=== PATIENT | male | born 1955 | race Caucasian/White ===

== ENCOUNTER 2023-06-11 15:27 | Inpatient (IN) | payer OTHER, MEDICAID ==
[~2023-06-11] VITALS: Ht 185.4 cm; Wt 146.6 kg
[2023-06-11 15:34] VITALS: BP_SYST 96; PULSE 89; RESP 18; TEMP 98.1; O2SAT 98
[2023-06-11] MEDS ORDERED: NS 1000 ML IV.SOLN IV ONE (16:30)
[2023-06-11 17:09] LABS: HEMATOCRIT 33.8 % (36-54); HEMOGLOBIN 11.2 g/dL (14.0-18.0); MEAN CORPUSCULAR HEMOGLOBIN 27 pg (27-31); MEAN CORPUSCULAR HGB CONC 33 % (32-36); MEAN CORPUSCULAR VOLUME 82 fL (79.0-98.0); PLATELET COUNT (AUTO) 113 K/uL (130-430); RED BLOOD CELL COUNT(AUTO) 4.12 MIL/uL (4.2-6.2); RED CELL DISTRIBUTION WIDTH 14.4 % (9.0-15.0); WHITE BLOOD COUNT (AUTO) 27.4 K/uL (4.8-10.8)
[2023-06-11 17:14] LABS: COLOR,URINE AMBER (YELLOW)
[2023-06-11 17:15] LABS: PROTHROMBIN TIME 10.8 SECS (9.5-12.5)
[2023-06-11 17:15] LABS: CLARITY/URINE HAZY (CLEAR); PROTEIN URINE 3+ (NEGATIVE)
[2023-06-11 17:16] LABS: BILIRUBIN,URINE 2+ (NEGATIVE); KETONES,URINE TRACE (NEGATIVE)
[2023-06-11 17:17] LABS: BLOOD, URINE TRACE (NEGATIVE); GLUCOSE,URINE 2+ (NEGATIVE); LEUKOCYTE ESTERASE ,URINE NEGATIVE (NEGATIVE); NITRITE, URINE NEGATIVE (NEGATIVE)
[2023-06-11 17:23] LABS: ALANINE AMINOTRANSFERASE 98 U/L (12-78); ALBUMIN 1.2 g/dL (3.4-4.8); ANION GAP 11 (5-15); ASPARTATE AMINOTRANSFERASE 189 U/L (10-37); CARBON DIOXIDE 23 mmol/L (23-29); CREATININE 2.78 mg/dL (0.55-1.30); GFR AFRICAN AMERICAN 30 mL/min (>90); GLUCOSE 399 mg/dL (74-106); POTASSIUM 4.3 mmol/L (3.5-5.1); TOTAL BILIRUBIN 1.7 mg/dL (0.0-1.0); TOTAL PROTEIN, SERUM 5.6 g/dL (6.4-8.3); UREA NITROGEN, BLOOD 79 mg/dL (8-21)
[2023-06-11 17:25] LABS: BACTERIA,URINE RARE /HPF (None Seen); CALCIUM OXALATE CRYSTALS,UR 0-10 /HPF (None Seen); FINE GRANULAR CASTS,URINE 0-10 /LPF (None Seen); HYALINE CASTS, URINE 0-10 /LPF (None Seen); MUCUS,URINE 1+ /LPF (None Seen); URINE AMORPHOUS URATE 1+ /HPF (None Seen); WBC,URINE 0-3 /HPF (0-3)
[2023-06-11 17:25] LABS: BAND % (MANUAL) 42 % (0-6)
[2023-06-11 17:26] LABS: BASOPHILS % (MANUAL) 0 % (0-2); EOSINOPHILS % (MANUAL) 1 % (0-7); LYMPHOCYTES % (MANUAL) 4 % (20-46); MONOCYTES % (MANUAL) 1 % (0-11); OVALOCYTES FEW; PLATELET ESTIMATE DECREASED (ADEQUATE); TEAR DROP CELLS FEW
[2023-06-11 17:28] LABS: GFR NON AFRICAN-AMERICAN 24 mL/min (>90)
[2023-06-11 17:29] LABS: CHLORIDE 79 mmol/L (98-107); SODIUM SERUM 113 mmol/L (136-145)
[2023-06-11] MEDS ORDERED: ACETAMINOPHEN 500 MG TABLET ONE (17:56)
[2023-06-11] MEDS ORDERED: ACETAMINOPHEN 500 MG TABLET PO ONE (18:00)
[2023-06-11] MEDS ORDERED: PIPERACILLIN/TAZO 3.375 GM in D5W 50 ML IV ONE (18:30)
[2023-06-11] MEDS ORDERED: VANCOMYCIN HCL 1.25 GM/NS 250 ML IV ONE (18:30)
[2023-06-11] MEDS ORDERED: PIPERACILLIN/TAZOBACTAM 3.375 GM/VIAL (ZOSYN) IV ONE (18:39)
[2023-06-11] MEDS ORDERED: LIP20 PO (19:05)
[2023-06-11] MEDS ORDERED: LISI10TA PO (19:05)
[2023-06-11] MEDS ORDERED: ASPI-524 PO (19:05)
[2023-06-11] MEDS ORDERED: BENZ1TAB82 PO (19:05)
[2023-06-11] MEDS ORDERED: AMLO5TAB4 PO (19:05)
[2023-06-11] MEDS ORDERED: CARV12.548 PO (19:05)
[2023-06-11] MEDS ORDERED: PRO40 PO (19:05)
[2023-06-11] MEDS ORDERED: TAMS-11 PO (19:05)
[2023-06-11] MEDS ORDERED: ONDANSETRON HCL 4 MG/2 ML VIAL IVP PRN (20:15)
[2023-06-11 22:05] VITALS: BP_SYST 127; PULSE 76; RESP 18; TEMP 97
[2023-06-11 22:10] VITALS: BP_SYST 127; PULSE 76; RESP 18; TEMP 97
[2023-06-12] VITALS (7 sets, daily range): BP systolic 92–127; PULSE 72–78; RESP 17–28; TEMP 96.6–97.7; O2SAT 94–98
[2023-06-12] MEDS: KCL 20 mEq in NS 1000 mL 1,000 ML IV SCH ×3 (00:29→17:42)
[2023-06-12 05:28] LABS: BASOPHILS # (AUTO) 0.1 K/uL (0.0-0.2); BASOPHILS % (AUTO) 0.2 % (0.0-2.0); EOSINOPHILS # (AUTO) 0.7 K/uL (0.0-0.4); EOSINOPHILS % (AUTO) 2.4 % (0.0-4.0); HEMATOCRIT 32.9 % (36-54); LYMPHOCYTES # (AUTO) 0.6 K/uL (1.0-5.5); LYMPHOCYTES % (AUTO) 2.1 % (20.5-51.5); MEAN CORPUSCULAR HEMOGLOBIN 27 pg (27-31); MEAN CORPUSCULAR HGB CONC 33 % (32-36); MEAN CORPUSCULAR VOLUME 82 fL (79.0-98.0); MONOCYTES # (AUTO) 0.6 K/uL (0.0-1.0); MONOCYTES % (AUTO) 2.2 % (1.7-9.3); NEUTROPHILS # (AUTO) 27.1 K/uL (1.8-7.7); NEUTROPHILS % (AUTO) 93.1 % (40.0-70.0); PLATELET COUNT (AUTO) 90 K/uL (130-430); RED BLOOD CELL COUNT(AUTO) 4.02 MIL/uL (4.2-6.2); RED CELL DISTRIBUTION WIDTH 14.7 % (9.0-15.0); WHITE BLOOD COUNT (AUTO) 29.1 K/uL (4.8-10.8)
[2023-06-12 05:38] LABS: ALBUMIN 1.1 g/dL (3.4-4.8); AMYLASE 14 U/L (0-100); CREATININE 2.64 mg/dL (0.55-1.30); LIPASE 35 U/L (73-393); POTASSIUM 4.2 mmol/L (3.5-5.1); TOTAL BILIRUBIN 1.6 mg/dL (0.0-1.0); TOTAL PROTEIN, SERUM 5.2 g/dL (6.4-8.3)
[2023-06-12 06:09] LABS: CALCIUM 6.6 mg/dL (8.4-11.0)
[2023-06-12] MEDS: INSULIN REGULAR, HUMAN 100 UNITS/ML, 3 ML VIAL (humuLIN R) SUBCUT PRN ×4 (06:49→20:38)
[2023-06-12] MEDS: AZITHROMYCIN 500 MG in NS 250 ML IV SCH (12:29)
[2023-06-12] MEDS: MEROPENEM 500 MG in NS 50 ML IV SCH ×2 (13:44→22:17)
[2023-06-12] MEDS: INSULIN GLARGINE 100 UNITS/ML, 10 ML VIAL SUBCUT SCH (17:46)
[2023-06-12] MEDS: SODIUM CHLORIDE 3% *HI-ALERT* 500 ML IV ONE ×2 (20:35→22:18)
[2023-06-12 21:30] LABS: CREATININE 2.88 mg/dL (0.55-1.30); POTASSIUM 4.5 mmol/L (3.5-5.1)
[2023-06-12 21:41] LABS: CALCIUM 6.8 mg/dL (8.4-11.0)
[2023-06-13 00:58] VITALS: BP_SYST 122; PULSE 74; RESP 19; TEMP 98.4; O2SAT 91
[2023-06-13] MEDS: MEROPENEM 500 MG in NS 50 ML IV SCH ×3 (05:09→21:45)
[2023-06-13 05:19] LABS: BASOPHILS % (AUTO) 0.1 % (0.0-2.0); EOSINOPHILS # (AUTO) 0.2 K/uL (0.0-0.4); EOSINOPHILS % (AUTO) 0.5 % (0.0-4.0); HEMOGLOBIN 10.9 g/dL (14.0-18.0); LYMPHOCYTES # (AUTO) 1.4 K/uL (1.0-5.5); LYMPHOCYTES % (AUTO) 4.1 % (20.5-51.5); MEAN CORPUSCULAR HEMOGLOBIN 26 pg (27-31); MEAN CORPUSCULAR HGB CONC 32 % (32-36); MEAN CORPUSCULAR VOLUME 82 fL (79.0-98.0); MONOCYTES # (AUTO) 0.7 K/uL (0.0-1.0); MONOCYTES % (AUTO) 2.2 % (1.7-9.3); NEUTROPHILS # (AUTO) 31.2 K/uL (1.8-7.7); NEUTROPHILS % (AUTO) 93.1 % (40.0-70.0); PLATELET COUNT (AUTO) 84 K/uL (130-430); RED BLOOD CELL COUNT(AUTO) 4.13 MIL/uL (4.2-6.2); RED CELL DISTRIBUTION WIDTH 14.4 % (9.0-15.0)
[2023-06-13 05:49] LABS: WHITE BLOOD COUNT (AUTO) 33.5 K/uL (4.8-10.8)
[2023-06-13 05:50] LABS: CREATININE 2.41 mg/dL (0.55-1.30); PHOSPHORUS 3.5 mg/dL (2.7-4.5); POTASSIUM 4.9 mmol/L (3.5-5.1); THYROID STIMULATING HORMONE 1.61 uIu/mL (0.34-4.82); TOTAL BILIRUBIN 0.9 mg/dL (0.0-1.0); TOTAL PROTEIN, SERUM 5.5 g/dL (6.4-8.3)
[2023-06-13 06:11] LABS: CALCIUM 6.6 mg/dL (8.4-11.0)
[2023-06-13] MEDS: INSULIN REGULAR, HUMAN 100 UNITS/ML, 3 ML VIAL (humuLIN R) SUBCUT PRN ×4 (06:23→21:48)
[2023-06-13 07:58] VITALS: BP_SYST 126; PULSE 67; RESP 32; TEMP 97.1; O2SAT 97
[2023-06-13] MEDS: ACETAMINOPHEN 325 MG TABLET PO PRN (08:51)
[2023-06-13] MEDS: AZITHROMYCIN 500 MG in NS 250 ML IV SCH (11:27)
[2023-06-13 12:00] VITALS: BP_SYST 88; PULSE 64; RESP 16; TEMP 96.9; O2SAT 100
[2023-06-13 12:07] LABS: HEPATITIS A AB, IgM Negative (Negative); HEPATITIS B CORE AB, IgM Negative (Negative); HEPATITIS B SURFACE AG Negative (Negative); HEPATITIS C VIRUS AB Non Reactive (Non Reactive)
[2023-06-13 13:57] LABS: URINE SODIUM, RANDOM 3 mmol/L (40-220)
[2023-06-13] MEDS: DAPTOmycin 500 MG in NS 50 ML IV SCH (15:00)
[2023-06-13 16:03] LABS: CREATININE 2.02 mg/dL (0.55-1.30); POTASSIUM 4.7 mmol/L (3.5-5.1)
[2023-06-13 16:07] LABS: CALCIUM 6.6 mg/dL (8.4-11.0)
[2023-06-13] MEDS ORDERED: SODIUM CHLORIDE 3% *HI-ALERT* 500 ML IV ONE (17:00)
[2023-06-13] MEDS: INSULIN GLARGINE 100 UNITS/ML, 10 ML VIAL SUBCUT SCH (17:02)
[2023-06-13 18:11] LABS: POTASSIUM 5.1 mmol/L (3.5-5.1)
[2023-06-13 18:13] LABS: CREATININE 2.39 mg/dL (0.55-1.30)
[2023-06-13 18:15] LABS: CALCIUM 6.5 mg/dL (8.4-11.0)
[2023-06-13 18:36] VITALS: BP_SYST 112; PULSE 68; RESP 19; TEMP 96.9; O2SAT 97
[2023-06-13 18:37] VITALS: BP_SYST 115; PULSE 70; RESP 21; TEMP 97.3; O2SAT 99
[2023-06-13 19:51] VITALS: BP_SYST 133; PULSE 68; RESP 18; TEMP 97.4; O2SAT 66; O2SAT 99
[2023-06-13] MEDS: MORPHINE 4 MG INJ. 4 MG/ML VIAL IVP PRN (23:22)
[2023-06-14 01:11] VITALS: BP_SYST 119; PULSE 74; RESP 18; TEMP 97.5; O2SAT 97
[2023-06-14 01:14] LABS: CREATININE 1.89 mg/dL (0.55-1.30); POTASSIUM 4.8 mmol/L (3.5-5.1); TOTAL BILIRUBIN 1.1 mg/dL (0.0-1.0); TOTAL PROTEIN, SERUM 5.9 g/dL (6.4-8.3)
[2023-06-14 01:21] LABS: CALCIUM 6.6 mg/dL (8.4-11.0)
[2023-06-14 05:36] LABS: BASOPHILS % (AUTO) 0.1 % (0.0-2.0); EOSINOPHILS # (AUTO) 0.2 K/uL (0.0-0.4); EOSINOPHILS % (AUTO) 0.7 % (0.0-4.0); LYMPHOCYTES # (AUTO) 1.8 K/uL (1.0-5.5); LYMPHOCYTES % (AUTO) 5.1 % (20.5-51.5); MEAN CORPUSCULAR HEMOGLOBIN 27 pg (27-31); MEAN CORPUSCULAR HGB CONC 32 % (32-36); MEAN CORPUSCULAR VOLUME 82 fL (79.0-98.0); MONOCYTES % (AUTO) 2.9 % (1.7-9.3); NEUTROPHILS # (AUTO) 31.2 K/uL (1.8-7.7); NEUTROPHILS % (AUTO) 91.2 % (40.0-70.0); PLATELET COUNT (AUTO) 82 K/uL (130-430); RED BLOOD CELL COUNT(AUTO) 4.15 MIL/uL (4.2-6.2); RED CELL DISTRIBUTION WIDTH 14.9 % (9.0-15.0)
[2023-06-14 05:37] LABS: CREATININE 1.78 mg/dL (0.55-1.30); POTASSIUM 4.6 mmol/L (3.5-5.1)
[2023-06-14] MEDS: MEROPENEM 500 MG in NS 50 ML IV SCH ×3 (05:43→22:03)
[2023-06-14] MEDS: MORPHINE 4 MG INJ. 4 MG/ML VIAL IVP PRN (05:43)
[2023-06-14 05:48] LABS: CALCIUM 6.6 mg/dL (8.4-11.0)
[2023-06-14] MEDS: INSULIN REGULAR, HUMAN 100 UNITS/ML, 3 ML VIAL (humuLIN R) SUBCUT PRN ×4 (05:53→22:01)
[2023-06-14 06:08] LABS: WHITE BLOOD COUNT (AUTO) 34.3 K/uL (4.8-10.8)
[2023-06-14 08:15] VITALS: BP_SYST 136; PULSE 75; RESP 16; TEMP 96.8; O2SAT 97
[2023-06-14] MEDS: ACETAMINOPHEN 325 MG TABLET PO PRN (08:18)
[2023-06-14 08:25] VITALS: O2SAT 97
[2023-06-14] MEDS ORDERED: SODIUM CHLORIDE 3% *HI-ALERT* 500 ML IV ONE (09:00)
[2023-06-14 09:57] LABS: CREATININE 1.75 mg/dL (0.55-1.30); POTASSIUM 4.8 mmol/L (3.5-5.1)
[2023-06-14 09:59] LABS: CALCIUM 6.5 mg/dL (8.4-11.0)
[2023-06-14] MEDS ORDERED: FUROSEMIDE 40 MG/4 ML VIAL IVP ONE (12:00)
[2023-06-14 12:06] LABS: CREATININE, URINE 230.5 mg/dL (Not Estab.)
[2023-06-14] MEDS: AZITHROMYCIN 500 MG in NS 250 ML IV SCH (13:07)
[2023-06-14] MEDS: DAPTOmycin 500 MG in NS 50 ML IV SCH (16:36)
[2023-06-14] MEDS: INSULIN GLARGINE 100 UNITS/ML, 10 ML VIAL SUBCUT SCH (18:15)
[2023-06-14 19:00] VITALS: BP_SYST 134; PULSE 72; RESP 16; TEMP 97.1; O2SAT 96; O2SAT 98
[2023-06-15 00:03] VITALS: BP_SYST 120; PULSE 74; RESP 16; TEMP 96.5; O2SAT 95
[2023-06-15] MEDS: MORPHINE 4 MG INJ. 4 MG/ML VIAL IVP PRN ×2 (00:52→11:36)
[2023-06-15] MEDS: ACETAMINOPHEN 325 MG TABLET PO PRN (03:26)
[2023-06-15 06:09] LABS: ALBUMIN 0.8 g/dL (3.4-4.8); CREATININE 1.38 mg/dL (0.55-1.30); PHOSPHORUS 4.9 mg/dL (2.7-4.5); POTASSIUM 5.2 mmol/L (3.5-5.1); TOTAL BILIRUBIN 0.8 mg/dL (0.0-1.0); TOTAL PROTEIN, SERUM 6.1 g/dL (6.4-8.3)
[2023-06-15] MEDS: MEROPENEM 500 MG in NS 50 ML IV SCH ×3 (06:22→21:21)
[2023-06-15 06:34] LABS: CALCIUM 6.8 mg/dL (8.4-11.0)
[2023-06-15] MEDS: INSULIN REGULAR, HUMAN 100 UNITS/ML, 3 ML VIAL (humuLIN R) SUBCUT PRN ×4 (06:46→22:11)
[2023-06-15 07:06] LABS: MYCOPLASMA PNEUMONIAE IgM <770 U/mL (0-769)
[2023-06-15 08:00] VITALS: BP_SYST 124; PULSE 76; RESP 18; TEMP 97.3; O2SAT 96
[2023-06-15 08:32] LABS: CKMB RELATIVE INDEX 0.1 (0.0-2.9); CREATINE KINASE MB 0.4 ng/mL (0-3.6)
[2023-06-15] MEDS ORDERED: FUROSEMIDE 40 MG/4 ML VIAL IVP ONE (12:15)
[2023-06-15 12:42] VITALS: BP_SYST 122; PULSE 70; RESP 17; TEMP 97; O2SAT 97
[2023-06-15] MEDS ORDERED: SODIUM CHLORIDE 3% *HI-ALERT* 250 ML IV ONE (13:30)
[2023-06-15 15:17] VITALS: O2SAT 96
[2023-06-15] MEDS: DAPTOmycin 500 MG in NS 50 ML IV SCH (15:48)
[2023-06-15 16:49] VITALS: BP_SYST 123; PULSE 77; RESP 18; TEMP 97.2; O2SAT 97
[2023-06-15] MEDS: INSULIN GLARGINE 100 UNITS/ML, 10 ML VIAL SUBCUT SCH (17:24)
[2023-06-15 20:00] VITALS: BP_SYST 137; PULSE 85; RESP 18; TEMP 98.6; O2SAT 96
[2023-06-15] MEDS: ATORVASTATIN 20 MG TABLET PO SCH (22:09)
[2023-06-15] MEDS: TAMSULOSIN HCL 0.4 MG CAP PO SCH (22:09)
[2023-06-16 00:31] VITALS: BP_SYST 142; PULSE 73; RESP 14; TEMP 97.6; O2SAT 97
[2023-06-16] MEDS: MEROPENEM 500 MG in NS 50 ML IV SCH ×3 (06:24→23:18)
[2023-06-16 06:30] LABS: ALBUMIN 0.9 g/dL (3.4-4.8); CREATININE 1.23 mg/dL (0.55-1.30); TOTAL BILIRUBIN 0.8 mg/dL (0.0-1.0); TOTAL PROTEIN, SERUM 6.7 g/dL (6.4-8.3)
[2023-06-16 06:47] LABS: CALCIUM 6.8 mg/dL (8.4-11.0); POTASSIUM 5.9 mmol/L (3.5-5.1)
[2023-06-16] MEDS: INSULIN REGULAR, HUMAN 100 UNITS/ML, 3 ML VIAL (humuLIN R) SUBCUT PRN ×4 (06:58→20:31)
[2023-06-16 08:00] VITALS: BP_SYST 146; PULSE 74; RESP 18; TEMP 99.2; O2SAT 98
[2023-06-16] MEDS ORDERED: SODIUM POLYSTYRENE SULFONATE 15 GM/60 ML UDBTL PO ONE (08:30)
[2023-06-16] MEDS ORDERED: SODIUM BICARBONATE 8.4% JECT 50 MEQ/50 ML SYRINGE IVP ONE (08:30)
[2023-06-16] MEDS: ASPIRIN 81 MG TABLET(ECOTRIN) PO SCH (09:12)
[2023-06-16 12:42] VITALS: BP_SYST 144; PULSE 77; RESP 16; TEMP 98.6; O2SAT 98
[2023-06-16] MEDS ORDERED: CLINDAMYCIN 300 MG/50 ML D5W 50 ML IV ONE (14:15)
[2023-06-16 15:10] VITALS: O2SAT 98
[2023-06-16] MEDS ORDERED: FUROSEMIDE 40 MG/4 ML VIAL IVP ONE (15:15)
[2023-06-16 16:00] VITALS: BP_SYST 145; PULSE 75; RESP 17; TEMP 98.9; O2SAT 97
[2023-06-16] MEDS: DAPTOmycin 500 MG in NS 50 ML IV SCH (16:10)
[2023-06-16] MEDS ORDERED: SODIUM CHLORIDE 3% *HI-ALERT* 250 ML IV ONE (16:15)
[2023-06-16] MEDS: CLINDAMYCIN 300 MG/50 ML D5W 50 ML IV SCH ×2 (16:46→22:17)
[2023-06-16] MEDS: INSULIN GLARGINE 100 UNITS/ML, 10 ML VIAL SUBCUT SCH (16:55)
[2023-06-16 19:00] VITALS: O2SAT 97
[2023-06-16] MEDS: TAMSULOSIN HCL 0.4 MG CAP PO SCH (20:25)
[2023-06-16] MEDS: ATORVASTATIN 20 MG TABLET PO SCH (20:25)
[2023-06-17 00:11] VITALS: BP_SYST 145; PULSE 78; RESP 16; TEMP 97.2; O2SAT 95
[2023-06-17] MEDS: CLINDAMYCIN 300 MG/50 ML D5W 50 ML IV SCH ×3 (04:23→16:31)
[2023-06-17] MEDS: MEROPENEM 500 MG in NS 50 ML IV SCH ×3 (06:29→22:47)
[2023-06-17] MEDS: INSULIN REGULAR, HUMAN 100 UNITS/ML, 3 ML VIAL (humuLIN R) SUBCUT PRN ×4 (06:37→20:24)
[2023-06-17 07:28] LABS: HEMATOCRIT 31.3 % (36-54); HEMOGLOBIN 10.4 g/dL (14.0-18.0); MEAN CORPUSCULAR HEMOGLOBIN 27 pg (27-31); MEAN CORPUSCULAR HGB CONC 33 % (32-36); MEAN CORPUSCULAR VOLUME 82 fL (79.0-98.0); PLATELET COUNT (AUTO) 197 K/uL (130-430); RED BLOOD CELL COUNT(AUTO) 3.81 MIL/uL (4.2-6.2); RED CELL DISTRIBUTION WIDTH 14.8 % (9.0-15.0)
[2023-06-17 07:30] VITALS: BP_SYST 105; PULSE 71; RESP 18; TEMP 97.7; O2SAT 97
[2023-06-17 07:36] LABS: ALBUMIN 0.9 g/dL (3.4-4.8); CALCIUM 7.1 mg/dL (8.4-11.0); CREATININE 1.18 mg/dL (0.55-1.30); PHOSPHORUS 5.5 mg/dL (2.7-4.5); TOTAL BILIRUBIN 0.6 mg/dL (0.0-1.0); TOTAL PROTEIN, SERUM 6.7 g/dL (6.4-8.3)
[2023-06-17 07:43] LABS: POTASSIUM 5.8 mmol/L (3.5-5.1)
[2023-06-17 07:51] LABS: WHITE BLOOD COUNT (AUTO) 30.6 K/uL (4.8-10.8)
[2023-06-17 09:36] LABS: BAND % (MANUAL) 15 % (0-6); LYMPHOCYTES % (MANUAL) 5 % (20-46); MONOCYTES % (MANUAL) 5 % (0-11)
[2023-06-17 09:37] LABS: BASOPHILS % (MANUAL) 0 % (0-2); EOSINOPHILS % (MANUAL) 2 % (0-7); METAMYELOCYTES % 7 % (0-0); MYELOCYTES % 1 % (0-0); PLATELET ESTIMATE ADEQUATE (ADEQUATE); SMUDGE CELLS RARE
[2023-06-17] MEDS: ASPIRIN 81 MG TABLET(ECOTRIN) PO SCH (10:13)
[2023-06-17 11:30] VITALS: BP_SYST 102; PULSE 75; RESP 17; TEMP 97.9; O2SAT 97
[2023-06-17] MEDS: DAPTOmycin 500 MG in NS 50 ML IV SCH (14:37)
[2023-06-17] MEDS ORDERED: SODIUM ZIRCONIUM CYCLOSILICATE 10 GM POWD.PACK PO ONE (15:00)
[2023-06-17] MEDS: ALBUMIN HUMAN 25% 50 ML IV SCH ×2 (16:30→20:31)
[2023-06-17 17:30] VITALS: BP_SYST 110; PULSE 77; RESP 17; TEMP 98.1; O2SAT 97
[2023-06-17] MEDS: INSULIN GLARGINE 100 UNITS/ML, 10 ML VIAL SUBCUT SCH (17:41)
[2023-06-17 20:00] VITALS: BP_SYST 142; PULSE 76; RESP 18; TEMP 97.9; O2SAT 97
[2023-06-17] MEDS: TAMSULOSIN HCL 0.4 MG CAP PO SCH (20:18)
[2023-06-17] MEDS: CLINDAMYCIN HCL 150 MG CAPSULE PO SCH (20:18)
[2023-06-17] MEDS: ATORVASTATIN 20 MG TABLET PO SCH (20:18)
[2023-06-17 23:00] VITALS: O2SAT 97
[2023-06-18 00:12] VITALS: BP_SYST 145; PULSE 75; RESP 20; TEMP 98.6; O2SAT 95
[2023-06-18] MEDS: traZODone HCL 50 MG TABLET (DESYREL) PO PRN ×2 (02:12→20:33)
[2023-06-18] MEDS: ALBUMIN HUMAN 25% 50 ML IV SCH (02:34)
[2023-06-18] MEDS: MEROPENEM 500 MG in NS 50 ML IV SCH (06:38)
[2023-06-18 07:52] LABS: BASOPHILS # (AUTO) 0.2 K/uL (0.0-0.2); BASOPHILS % (AUTO) 0.7 % (0.0-2.0); EOSINOPHILS # (AUTO) 0.2 K/uL (0.0-0.4); EOSINOPHILS % (AUTO) 0.7 % (0.0-4.0); HEMATOCRIT 29.3 % (36-54); HEMOGLOBIN 9.8 g/dL (14.0-18.0); LYMPHOCYTES # (AUTO) 1.7 K/uL (1.0-5.5); LYMPHOCYTES % (AUTO) 7.3 % (20.5-51.5); MEAN CORPUSCULAR HEMOGLOBIN 28 pg (27-31); MEAN CORPUSCULAR HGB CONC 34 % (32-36); MEAN CORPUSCULAR VOLUME 82 fL (79.0-98.0); MONOCYTES # (AUTO) 0.8 K/uL (0.0-1.0); MONOCYTES % (AUTO) 3.4 % (1.7-9.3); NEUTROPHILS # (AUTO) 21.1 K/uL (1.8-7.7); PLATELET COUNT (AUTO) 254 K/uL (130-430); RED BLOOD CELL COUNT(AUTO) 3.55 MIL/uL (4.2-6.2); RED CELL DISTRIBUTION WIDTH 14.7 % (9.0-15.0)
[2023-06-18 08:07] VITALS: BP_SYST 122; PULSE 77; RESP 18; TEMP 99.1; O2SAT 97
[2023-06-18 08:10] LABS: NEUTROPHILS % (AUTO) 87.9 % (40.0-70.0)
[2023-06-18 08:12] LABS: CALCIUM 7.4 mg/dL (8.4-11.0); CREATININE 1.02 mg/dL (0.55-1.30); POTASSIUM 5.4 mmol/L (3.5-5.1)
[2023-06-18] MEDS: ASPIRIN 81 MG TABLET(ECOTRIN) PO SCH (08:31)
[2023-06-18] MEDS: CLINDAMYCIN HCL 150 MG CAPSULE PO SCH ×4 (08:32→20:34)
[2023-06-18 11:30] VITALS: BP_SYST 102; PULSE 74; RESP 19; TEMP 98; O2SAT 98
[2023-06-18] MEDS: INSULIN REGULAR, HUMAN 100 UNITS/ML, 3 ML VIAL (humuLIN R) SUBCUT PRN ×3 (12:21→20:36)
[2023-06-18] MEDS ORDERED: SODIUM ZIRCONIUM CYCLOSILICATE 10 GM POWD.PACK PO ONE (14:00)
[2023-06-18] MEDS: DAPTOmycin 500 MG in NS 50 ML IV SCH (14:49)
[2023-06-18 17:30] VITALS: BP_SYST 120; PULSE 81; RESP 18; TEMP 98.1; O2SAT 97
[2023-06-18] MEDS: INSULIN GLARGINE 100 UNITS/ML, 10 ML VIAL SUBCUT SCH (17:51)
[2023-06-18 20:00] VITALS: BP_SYST 127; PULSE 82; RESP 18; TEMP 97.7; O2SAT 97
[2023-06-18] MEDS: ATORVASTATIN 20 MG TABLET PO SCH (20:34)
[2023-06-18] MEDS: TAMSULOSIN HCL 0.4 MG CAP PO SCH (20:34)
[2023-06-18 22:00] VITALS: O2SAT 96
[2023-06-19 01:17] VITALS: BP_SYST 133; PULSE 83; RESP 19; TEMP 98.6; O2SAT 96
[2023-06-19 05:37] LABS: BASOPHILS # (AUTO) 0.1 K/uL (0.0-0.2); BASOPHILS % (AUTO) 0.4 % (0.0-2.0); EOSINOPHILS # (AUTO) 0.1 K/uL (0.0-0.4); EOSINOPHILS % (AUTO) 0.5 % (0.0-4.0); HEMATOCRIT 28.8 % (36-54); HEMOGLOBIN 9.7 g/dL (14.0-18.0); LYMPHOCYTES # (AUTO) 1.7 K/uL (1.0-5.5); LYMPHOCYTES % (AUTO) 7.1 % (20.5-51.5); MEAN CORPUSCULAR HEMOGLOBIN 27 pg (27-31); MEAN CORPUSCULAR HGB CONC 34 % (32-36); MEAN CORPUSCULAR VOLUME 81 fL (79.0-98.0); MONOCYTES # (AUTO) 0.9 K/uL (0.0-1.0); MONOCYTES % (AUTO) 3.6 % (1.7-9.3); NEUTROPHILS # (AUTO) 21.5 K/uL (1.8-7.7); NEUTROPHILS % (AUTO) 88.4 % (40.0-70.0); PLATELET COUNT (AUTO) 346 K/uL (130-430); RED BLOOD CELL COUNT(AUTO) 3.55 MIL/uL (4.2-6.2); RED CELL DISTRIBUTION WIDTH 14.9 % (9.0-15.0); WHITE BLOOD COUNT (AUTO) 24.3 K/uL (4.8-10.8)
[2023-06-19 06:08] LABS: CALCIUM 7.8 mg/dL (8.4-11.0); CREATININE 0.85 mg/dL (0.55-1.30)
[2023-06-19 06:15] LABS: POTASSIUM 5.8 mmol/L (3.5-5.1)
[2023-06-19] MEDS: INSULIN REGULAR, HUMAN 100 UNITS/ML, 3 ML VIAL (humuLIN R) SUBCUT PRN ×3 (06:38→17:24)
[2023-06-19 08:00] VITALS: BP_SYST 128; PULSE 78; RESP 20; TEMP 98.2; O2SAT 95
[2023-06-19] MEDS: ASPIRIN 81 MG TABLET(ECOTRIN) PO SCH (08:29)
[2023-06-19] MEDS: CLINDAMYCIN HCL 150 MG CAPSULE PO SCH ×4 (08:29→22:13)
[2023-06-19 11:33] VITALS: BP_SYST 140; PULSE 90; RESP 20; TEMP 98.8; O2SAT 93
[2023-06-19] MEDS: DAPTOmycin 500 MG in NS 50 ML IV SCH (15:16)
[2023-06-19 15:45] VITALS: BP_SYST 135; PULSE 85; RESP 18; TEMP 98.3; O2SAT 93
[2023-06-19] MEDS: INSULIN GLARGINE 100 UNITS/ML, 10 ML VIAL SUBCUT SCH (17:23)
[2023-06-19 20:00] VITALS: BP_SYST 131; PULSE 85; RESP 18; TEMP 98.4; O2SAT 96
[2023-06-19] MEDS ORDERED: SODIUM ZIRCONIUM CYCLOSILICATE 10 GM POWD.PACK PO ONE (20:15)
[2023-06-19 21:30] VITALS: O2SAT 96
[2023-06-19] MEDS: ATORVASTATIN 20 MG TABLET PO SCH (22:13)
[2023-06-19] MEDS: TAMSULOSIN HCL 0.4 MG CAP PO SCH (22:13)
[2023-06-19] MEDS: traZODone HCL 50 MG TABLET (DESYREL) PO PRN (22:13)
[2023-06-20 01:08] VITALS: BP_SYST 122; PULSE 83; RESP 19; TEMP 98.6; O2SAT 97
[2023-06-20 05:39] LABS: BASOPHILS # (AUTO) 0.1 K/uL (0.0-0.2); BASOPHILS % (AUTO) 0.5 % (0.0-2.0); EOSINOPHILS # (AUTO) 0.1 K/uL (0.0-0.4); EOSINOPHILS % (AUTO) 0.4 % (0.0-4.0); HEMATOCRIT 28.9 % (36-54); HEMOGLOBIN 9.8 g/dL (14.0-18.0); LYMPHOCYTES # (AUTO) 1.8 K/uL (1.0-5.5); LYMPHOCYTES % (AUTO) 7.5 % (20.5-51.5); MEAN CORPUSCULAR HEMOGLOBIN 28 pg (27-31); MEAN CORPUSCULAR HGB CONC 34 % (32-36); MEAN CORPUSCULAR VOLUME 82 fL (79.0-98.0); MONOCYTES # (AUTO) 0.7 K/uL (0.0-1.0); MONOCYTES % (AUTO) 2.9 % (1.7-9.3); NEUTROPHILS # (AUTO) 20.9 K/uL (1.8-7.7); NEUTROPHILS % (AUTO) 88.7 % (40.0-70.0); PLATELET COUNT (AUTO) 403 K/uL (130-430); RED BLOOD CELL COUNT(AUTO) 3.54 MIL/uL (4.2-6.2); RED CELL DISTRIBUTION WIDTH 14.7 % (9.0-15.0); WHITE BLOOD COUNT (AUTO) 23.6 K/uL (4.8-10.8)
[2023-06-20 05:54] LABS: CALCIUM 8.3 mg/dL (8.4-11.0); CREATININE 0.77 mg/dL (0.55-1.30)
[2023-06-20 08:00] VITALS: BP_SYST 161; PULSE 77; RESP 20; TEMP 98.8; O2SAT 95
[2023-06-20] MEDS: CLINDAMYCIN HCL 150 MG CAPSULE PO SCH ×4 (09:58→21:29)
[2023-06-20] MEDS: ASPIRIN 81 MG TABLET(ECOTRIN) PO SCH (09:58)
[2023-06-20] MEDS ORDERED: SODIUM ZIRCONIUM CYCLOSILICATE 10 GM POWD.PACK PO ONE (12:00)
[2023-06-20 12:20] VITALS: BP_SYST 144; PULSE 83; RESP 18; TEMP 97.2; O2SAT 96
[2023-06-20 16:00] VITALS: BP_SYST 148; PULSE 76; RESP 19; TEMP 97.6; O2SAT 96
[2023-06-20] MEDS: INSULIN GLARGINE 100 UNITS/ML, 10 ML VIAL SUBCUT SCH (17:16)
[2023-06-20 19:45] VITALS: BP_SYST 156; PULSE 87; RESP 20; TEMP 99.9; O2SAT 97
[2023-06-20 20:30] VITALS: O2SAT 97
[2023-06-20] MEDS: ATORVASTATIN 20 MG TABLET PO SCH (21:29)
[2023-06-20] MEDS: TAMSULOSIN HCL 0.4 MG CAP PO SCH (21:30)
[2023-06-21 00:36] VITALS: BP_SYST 139; PULSE 86; RESP 17; TEMP 96.3; O2SAT 96
[2023-06-21 06:25] LABS: BASOPHILS # (AUTO) 0.3 K/uL (0.0-0.2); BASOPHILS % (AUTO) 1.5 % (0.0-2.0); EOSINOPHILS # (AUTO) 0.1 K/uL (0.0-0.4); EOSINOPHILS % (AUTO) 0.4 % (0.0-4.0); HEMATOCRIT 31.1 % (36-54); HEMOGLOBIN 10.1 g/dL (14.0-18.0); LYMPHOCYTES # (AUTO) 1.6 K/uL (1.0-5.5); LYMPHOCYTES % (AUTO) 7.5 % (20.5-51.5); MEAN CORPUSCULAR HEMOGLOBIN 27 pg (27-31); MEAN CORPUSCULAR HGB CONC 33 % (32-36); MEAN CORPUSCULAR VOLUME 83 fL (79.0-98.0); MONOCYTES # (AUTO) 0.6 K/uL (0.0-1.0); NEUTROPHILS # (AUTO) 18.8 K/uL (1.8-7.7); NEUTROPHILS % (AUTO) 87.6 % (40.0-70.0); PLATELET COUNT (AUTO) 403 K/uL (130-430); RED BLOOD CELL COUNT(AUTO) 3.73 MIL/uL (4.2-6.2); RED CELL DISTRIBUTION WIDTH 14.7 % (9.0-15.0); WHITE BLOOD COUNT (AUTO) 21.4 K/uL (4.8-10.8)
[2023-06-21 07:00] VITALS: BP_SYST 149; PULSE 94; RESP 16; TEMP 97.3; O2SAT 96
[2023-06-21 07:15] VITALS: O2SAT 96
[2023-06-21 08:11] LABS: CREATININE 0.74 mg/dL (0.55-1.30)
[2023-06-21 08:13] LABS: POTASSIUM 6.2 mmol/L (3.5-5.1)
[2023-06-21] MEDS ORDERED: SODIUM ZIRCONIUM CYCLOSILICATE 10 GM POWD.PACK PO SCH (09:00)
[2023-06-21] MEDS ORDERED: SODIUM POLYSTYRENE SULFONATE 15 GM/60 ML UDBTL PO ONE (10:15)
[2023-06-21] MEDS: ASPIRIN 81 MG TABLET(ECOTRIN) PO SCH (11:26)
[2023-06-21] MEDS: CLINDAMYCIN HCL 150 MG CAPSULE PO SCH ×4 (11:26→20:54)
[2023-06-21 12:42] VITALS: BP_SYST 143; PULSE 89; RESP 17; TEMP 96.8; O2SAT 96
[2023-06-21] MEDS ORDERED: INSULIN REGULAR, HUMAN 100 UNITS/ML, 3 ML VIAL SUBCUT ONE (13:30)
[2023-06-21] MEDS ORDERED: DEXTROSE 50% JECT 50 ML DISP.SYRIN IVP ONE (13:30)
[2023-06-21] MEDS: DAPTOmycin 800 MG in NS 50 ML IV SCH (15:31)
[2023-06-21 16:00] VITALS: BP_SYST 145; PULSE 90; RESP 16; TEMP 97; O2SAT 97
[2023-06-21 17:06] LABS: COCCIDIOIDES AB IGG 1.1 IV (<=0.9); COCCIDIOIDES AB IGM 0.1 IV (<=0.9)
[2023-06-21] MEDS: INSULIN GLARGINE 100 UNITS/ML, 10 ML VIAL SUBCUT SCH (18:12)
[2023-06-21 20:30] VITALS: BP_SYST 147; PULSE 75; RESP 18; TEMP 97.2; O2SAT 96
[2023-06-21] MEDS: ATORVASTATIN 20 MG TABLET PO SCH (20:54)
[2023-06-21] MEDS: TAMSULOSIN HCL 0.4 MG CAP PO SCH (20:54)
[2023-06-22] VITALS: O2SAT 95
[2023-06-22 00:22] VITALS: BP_SYST 162; PULSE 86; RESP 17; TEMP 97; O2SAT 95
[2023-06-22 05:46] LABS: BASOPHILS # (AUTO) 0.1 K/uL (0.0-0.2); BASOPHILS % (AUTO) 0.3 % (0.0-2.0); EOSINOPHILS # (AUTO) 0.2 K/uL (0.0-0.4); EOSINOPHILS % (AUTO) 0.9 % (0.0-4.0); HEMATOCRIT 27.1 % (36-54); HEMOGLOBIN 8.9 g/dL (14.0-18.0); LYMPHOCYTES # (AUTO) 1.8 K/uL (1.0-5.5); MEAN CORPUSCULAR HEMOGLOBIN 27 pg (27-31); MEAN CORPUSCULAR HGB CONC 33 % (32-36); MEAN CORPUSCULAR VOLUME 84 fL (79.0-98.0); MONOCYTES # (AUTO) 0.6 K/uL (0.0-1.0); MONOCYTES % (AUTO) 3.6 % (1.7-9.3); NEUTROPHILS # (AUTO) 15.1 K/uL (1.8-7.7); NEUTROPHILS % (AUTO) 85.2 % (40.0-70.0); PLATELET COUNT (AUTO) 429 K/uL (130-430); RED BLOOD CELL COUNT(AUTO) 3.24 MIL/uL (4.2-6.2); RED CELL DISTRIBUTION WIDTH 14.6 % (9.0-15.0); WHITE BLOOD COUNT (AUTO) 17.7 K/uL (4.8-10.8)
[2023-06-22 05:56] LABS: CALCIUM 7.8 mg/dL (8.4-11.0); CREATININE 0.67 mg/dL (0.55-1.30); POTASSIUM 4.7 mmol/L (3.5-5.1)
[2023-06-22 09:01] VITALS: BP_SYST 148; PULSE 82; RESP 16; TEMP 99; O2SAT 90
[2023-06-22] MEDS: SODIUM POLYSTYRENE SULFONATE 15 GM/60 ML UDBTL PO SCH (10:27)
[2023-06-22] MEDS: ASPIRIN 81 MG TABLET(ECOTRIN) PO SCH (10:27)
[2023-06-22] MEDS: CLINDAMYCIN HCL 150 MG CAPSULE PO SCH ×4 (10:27→22:53)
[2023-06-22 11:30] VITALS: BP_SYST 144; PULSE 93; RESP 19; TEMP 98.6; O2SAT 96
[2023-06-22] MEDS: DAPTOmycin 800 MG in NS 50 ML IV SCH (14:05)
[2023-06-22 17:24] VITALS: BP_SYST 143; PULSE 90; RESP 18; TEMP 98.4; O2SAT 96
[2023-06-22] MEDS: INSULIN GLARGINE 100 UNITS/ML, 10 ML VIAL SUBCUT SCH (19:03)
[2023-06-22 20:00] VITALS: BP_SYST 144; PULSE 89; RESP 20; TEMP 98.8; O2SAT 96
[2023-06-22] MEDS: TAMSULOSIN HCL 0.4 MG CAP PO SCH (22:52)
[2023-06-22] MEDS: ATORVASTATIN 20 MG TABLET PO SCH (22:53)
[2023-06-23 01:01] VITALS: BP_SYST 127; PULSE 88; RESP 19; TEMP 97.6; O2SAT 95
[2023-06-23] MEDS: ACETAMINOPHEN 325 MG TABLET PO PRN (01:52)
[2023-06-23 06:21] LABS: BASOPHILS # (AUTO) 0.1 K/uL (0.0-0.2); BASOPHILS % (AUTO) 0.9 % (0.0-2.0); EOSINOPHILS # (AUTO) 0.1 K/uL (0.0-0.4); EOSINOPHILS % (AUTO) 0.6 % (0.0-4.0); HEMATOCRIT 27.2 % (36-54); HEMOGLOBIN 8.9 g/dL (14.0-18.0); LYMPHOCYTES % (AUTO) 12.3 % (20.5-51.5); MEAN CORPUSCULAR HEMOGLOBIN 27 pg (27-31); MEAN CORPUSCULAR HGB CONC 33 % (32-36); MEAN CORPUSCULAR VOLUME 83 fL (79.0-98.0); MONOCYTES # (AUTO) 0.6 K/uL (0.0-1.0); MONOCYTES % (AUTO) 3.6 % (1.7-9.3); NEUTROPHILS # (AUTO) 13.3 K/uL (1.8-7.7); NEUTROPHILS % (AUTO) 82.6 % (40.0-70.0); PLATELET COUNT (AUTO) 432 K/uL (130-430); RED BLOOD CELL COUNT(AUTO) 3.27 MIL/uL (4.2-6.2); RED CELL DISTRIBUTION WIDTH 14.4 % (9.0-15.0); WHITE BLOOD COUNT (AUTO) 16.1 K/uL (4.8-10.8)
[2023-06-23 06:47] LABS: CALCIUM 8.1 mg/dL (8.4-11.0); CREATININE 0.69 mg/dL (0.55-1.30); POTASSIUM 4.1 mmol/L (3.5-5.1)
[2023-06-23 08:00] VITALS: BP_SYST 124; PULSE 79; RESP 18; TEMP 98.4; O2SAT 97
[2023-06-23 09:00] VITALS: O2SAT 97
[2023-06-23] MEDS: SODIUM POLYSTYRENE SULFONATE 15 GM/60 ML UDBTL PO SCH (09:45)
[2023-06-23] MEDS: ASPIRIN 81 MG TABLET(ECOTRIN) PO SCH (09:45)
[2023-06-23] MEDS: CLINDAMYCIN HCL 150 MG CAPSULE PO SCH ×4 (09:45→20:48)
[2023-06-23 11:30] VITALS: BP_SYST 127; PULSE 80; RESP 18; TEMP 98.2; O2SAT 97
[2023-06-23] MEDS: DAPTOmycin 800 MG in NS 50 ML IV SCH (13:44)
[2023-06-23] MEDS ORDERED: SODIUM POLYSTYRENE SULFONATE 15 GM/60 ML UDBTL PO PRN (14:15)
[2023-06-23 17:30] VITALS: BP_SYST 146; PULSE 89; RESP 19; TEMP 98.6; O2SAT 98
[2023-06-23] MEDS: INSULIN GLARGINE 100 UNITS/ML, 10 ML VIAL SUBCUT SCH (18:00)
[2023-06-23 20:00] VITALS: BP_SYST 148; PULSE 87; RESP 18; TEMP 97.2; O2SAT 97
[2023-06-23] MEDS: ATORVASTATIN 20 MG TABLET PO SCH (20:47)
[2023-06-23] MEDS: TAMSULOSIN HCL 0.4 MG CAP PO SCH (20:48)
[2023-06-24] VITALS (8 sets, daily range): BP systolic 130–146; PULSE 73–86; RESP 16–20; TEMP 97–98.6; O2SAT 93–98
[2023-06-24 04:54] LABS: BASOPHILS # (AUTO) 0.2 K/uL (0.0-0.2); BASOPHILS % (AUTO) 1.2 % (0.0-2.0); EOSINOPHILS # (AUTO) 0.2 K/uL (0.0-0.4); EOSINOPHILS % (AUTO) 1.5 % (0.0-4.0); HEMATOCRIT 25.7 % (36-54); HEMOGLOBIN 8.5 g/dL (14.0-18.0); LYMPHOCYTES # (AUTO) 1.6 K/uL (1.0-5.5); LYMPHOCYTES % (AUTO) 12.9 % (20.5-51.5); MEAN CORPUSCULAR HEMOGLOBIN 27 pg (27-31); MEAN CORPUSCULAR HGB CONC 33 % (32-36); MEAN CORPUSCULAR VOLUME 83 fL (79.0-98.0); MONOCYTES # (AUTO) 0.5 K/uL (0.0-1.0); MONOCYTES % (AUTO) 3.7 % (1.7-9.3); NEUTROPHILS # (AUTO) 10.3 K/uL (1.8-7.7); NEUTROPHILS % (AUTO) 80.7 % (40.0-70.0); PLATELET COUNT (AUTO) 387 K/uL (130-430); RED BLOOD CELL COUNT(AUTO) 3.09 MIL/uL (4.2-6.2); RED CELL DISTRIBUTION WIDTH 14.4 % (9.0-15.0); WHITE BLOOD COUNT (AUTO) 12.8 K/uL (4.8-10.8)
[2023-06-24 05:21] LABS: ALBUMIN 0.9 g/dL (3.4-4.8); CALCIUM 8.1 mg/dL (8.4-11.0); CREATININE 0.65 mg/dL (0.55-1.30); POTASSIUM 3.7 mmol/L (3.5-5.1); TOTAL BILIRUBIN 0.9 mg/dL (0.0-1.0); TOTAL PROTEIN, SERUM 6.6 g/dL (6.4-8.3)
[2023-06-24] MEDS: ASPIRIN 81 MG TABLET(ECOTRIN) PO SCH (09:30)
[2023-06-24] MEDS: ACETAMINOPHEN 325 MG TABLET PO PRN (09:30)
[2023-06-24] MEDS: DAPTOmycin 800 MG in NS 50 ML IV SCH (13:48)
[2023-06-24] MEDS: INSULIN GLARGINE 100 UNITS/ML, 10 ML VIAL SUBCUT SCH (17:30)
[2023-06-24] MEDS ORDERED: LIDOCAINE MPF 2% 5mL VIAL INJ ONE (18:00)
[2023-06-24] MEDS: ATORVASTATIN 20 MG TABLET PO SCH (20:23)
[2023-06-24] MEDS: TAMSULOSIN HCL 0.4 MG CAP PO SCH (20:24)
[2023-06-25 00:17] VITALS: BP_SYST 137; PULSE 80; RESP 16; TEMP 96.3; O2SAT 97
[2023-06-25 07:43] VITALS: BP_SYST 155; PULSE 90; RESP 18; TEMP 97.7
[2023-06-25] MEDS: ASPIRIN 81 MG TABLET(ECOTRIN) PO SCH (08:11)
[2023-06-25] MEDS: FLUCONAZOLE 200 mg/ NS 100 ML IV SCH (10:50)
[2023-06-25 11:23] VITALS: BP_SYST 134; PULSE 88; RESP 18; TEMP 97.6; O2SAT 97
[2023-06-25] MEDS: DAPTOmycin 800 MG in NS 50 ML IV SCH (13:37)
[2023-06-25] MEDS ORDERED: MORPHINE 4 MG INJ. 4 MG/ML VIAL IVP PRN (13:45)
[2023-06-25 15:09] LABS: SOURCE/TYPE ,BODY FLUID SYNOVIAL
[2023-06-25 15:10] LABS: APPEARANCE,SPUN,BODY FLUID HAZY (CLEAR); BF APPEARANCE UNSPUN CLOUDY (CLEAR); BODY FLUID COLOR PINK (LT YELLOW); BODY FLUID SOURCE/ TYPE RIGHT KNEE; BODY FLUID TOTAL VOLUME 0.1 mL; LYMPHOCYTES, BODY FLUID 5 %; MONOCYTES,BODY FLUID 6 %; NEUTROPHIL, BODY FLUID 89 %; RBC, BODY FLUID 37050 /uL; WBC, BODY FLUID 22967 /uL
[2023-06-25 16:39] VITALS: BP_SYST 130; PULSE 84; RESP 17; TEMP 98; O2SAT 96
[2023-06-25] MEDS: INSULIN GLARGINE 100 UNITS/ML, 10 ML VIAL SUBCUT SCH (17:32)
[2023-06-25] MEDS: INSULIN REGULAR, HUMAN 100 UNITS/ML, 3 ML VIAL (humuLIN R) SUBCUT PRN ×2 (17:37→21:45)
[2023-06-25 20:05] VITALS: BP_SYST 151; PULSE 91; RESP 18; TEMP 99.1; O2SAT 98
[2023-06-25] MEDS: ATORVASTATIN 20 MG TABLET PO SCH (21:00)
[2023-06-25] MEDS: TAMSULOSIN HCL 0.4 MG CAP PO SCH (21:00)
[2023-06-25] MEDS: traZODone HCL 50 MG TABLET (DESYREL) PO PRN (22:17)
[2023-06-26 00:58] VITALS: BP_SYST 160; PULSE 90; RESP 19; TEMP 98.4; O2SAT 99
[2023-06-26 05:14] LABS: ALBUMIN 0.9 g/dL (3.4-4.8); CALCIUM 8.1 mg/dL (8.4-11.0); CREATININE 0.68 mg/dL (0.55-1.30); POTASSIUM 4.1 mmol/L (3.5-5.1); TOTAL BILIRUBIN 0.6 mg/dL (0.0-1.0); TOTAL PROTEIN, SERUM 6.8 g/dL (6.4-8.3)
[2023-06-26 05:19] LABS: BASOPHILS # (AUTO) 0.2 K/uL (0.0-0.2); BASOPHILS % (AUTO) 1.6 % (0.0-2.0); EOSINOPHILS # (AUTO) 0.2 K/uL (0.0-0.4); EOSINOPHILS % (AUTO) 1.9 % (0.0-4.0); HEMOGLOBIN 7.9 g/dL (14.0-18.0); LYMPHOCYTES # (AUTO) 1.6 K/uL (1.0-5.5); LYMPHOCYTES % (AUTO) 12.6 % (20.5-51.5); MEAN CORPUSCULAR HEMOGLOBIN 28 pg (27-31); MEAN CORPUSCULAR HGB CONC 33 % (32-36); MEAN CORPUSCULAR VOLUME 84 fL (79.0-98.0); MONOCYTES # (AUTO) 0.5 K/uL (0.0-1.0); MONOCYTES % (AUTO) 3.8 % (1.7-9.3); NEUTROPHILS # (AUTO) 10.1 K/uL (1.8-7.7); NEUTROPHILS % (AUTO) 80.1 % (40.0-70.0); PLATELET COUNT (AUTO) 329 K/uL (130-430); RED BLOOD CELL COUNT(AUTO) 2.86 MIL/uL (4.2-6.2); RED CELL DISTRIBUTION WIDTH 14.4 % (9.0-15.0); WHITE BLOOD COUNT (AUTO) 12.6 K/uL (4.8-10.8)
[2023-06-26 08:00] VITALS: BP_SYST 148; PULSE 85; RESP 16; TEMP 98.6; O2SAT 95
[2023-06-26] MEDS: ASPIRIN 81 MG TABLET(ECOTRIN) PO SCH (08:32)
[2023-06-26] MEDS: FLUCONAZOLE 200 mg/ NS 100 ML IV SCH (09:20)
[2023-06-26] MEDS ORDERED: CLINDAMYCIN PHOSPHATE 600 mg/50mL D5W IV ONE (09:30)
[2023-06-26] MEDS ORDERED: MIDAZOLAM HCL 2 MG/2 ML VIAL (VERSED) ONE (09:30)
[2023-06-26] MEDS ORDERED: NS IRRIG SOLN 1000 ML IR ONE (09:30)
[2023-06-26] MEDS ORDERED: NS 1000 ML IV.SOLN IV ONE (09:30)
[2023-06-26] MEDS ORDERED: NS IRRIG SOLN 5000 ML IR ONE (09:30)
[2023-06-26] MEDS ORDERED: TRANEXAMIC ACID 1,000 MG/10 ML VIAL ONE (09:30)
[2023-06-26] MEDS ORDERED: LIDOCAINE/EPI 1% 1:100000 20 ML VIAL ONE (09:30)
[2023-06-26] MEDS ORDERED: VANCOMYCIN HCL 1000 MG/VIAL IV ONE (09:30)
[2023-06-26] MEDS ORDERED: METOCLOPRAMIDE HCL 10 MG/2 ML VIAL ONE (09:30)
[2023-06-26] MEDS ORDERED: ONDANSETRON HCL 4 MG/2 ML VIAL ONE (09:30)
[2023-06-26] MEDS ORDERED: BUPIVACAINE /PF 0.25% 30 ML VIAL INJ ONE (09:30)
[2023-06-26] MEDS ORDERED: fentaNYL CITRATE/PF 100 MCG/2 ML AMP ONE (09:30)
[2023-06-26] MEDS ORDERED: SEVOFLURANE 15 MIN GAS INH ONE (09:30)
[2023-06-26] MEDS ORDERED: SUCCINYLCHOLINE CHLORIDE 20 MG/ML(QUELICIN) ONE (09:30)
[2023-06-26] MEDS ORDERED: PROPOFOL 200MG/ 20ML VIAL (DIPRIVAN) IV ONE (09:30)
[2023-06-26] MEDS ORDERED: ONDANSETRON HCL 4 MG/2 ML VIAL IVP PRN (10:45)
[2023-06-26] MEDS ORDERED: NALOXONE HCL 0.4 MG/ML AMP (NARCAN) IVP PRN ×3 (10:45→11:15)
[2023-06-26] MEDS ORDERED: HYDROmorphone 1 MG/ML INJ. CARTRIDGE IVP PRN ×2 (10:45)
[2023-06-26] MEDS: HYDROmorphone 2 MG/ML VIAL ONE ×2 (11:45→12:00)
[2023-06-26] MEDS: DAPTOmycin 800 MG in NS 50 ML IV SCH (13:46)
[2023-06-26 16:00] VITALS: BP_SYST 144; PULSE 107; RESP 18; TEMP 97.8; O2SAT 97
[2023-06-26] MEDS: INSULIN GLARGINE 100 UNITS/ML, 10 ML VIAL SUBCUT SCH (18:04)
[2023-06-26 20:00] VITALS: BP_SYST 14; PULSE 113; RESP 18; TEMP 99.3; O2SAT 97
[2023-06-26] MEDS: ATORVASTATIN 20 MG TABLET PO SCH (20:20)
[2023-06-26] MEDS: TAMSULOSIN HCL 0.4 MG CAP PO SCH (20:20)
[2023-06-26] MEDS: HYDROcodone/ACETAMIN 10-325 MG TAB PO PRN (20:20)
[2023-06-26 21:57] LABS: BODY FLUID GLUCOSE 3 mg/dL; BODY FLUID TOTAL PROTEIN 4.2 g/dL
[2023-06-26 22:30] LABS: BODY FLUID SOURCE/ TYPE SYNOVIAL; SOURCE/TYPE ,BODY FLUID SYNOVIAL
[2023-06-26 22:32] LABS: EOSINOPHIL, BODY FLUID 0 %; LYMPHOCYTES, BODY FLUID 5 %; MONOCYTES,BODY FLUID 2 %; NEUTROPHIL, BODY FLUID 93 %; RBC, BODY FLUID 65444 /uL; WBC, BODY FLUID 52044 /uL
[2023-06-26 22:33] LABS: BODY FLUID COLOR RED (LT YELLOW)
[2023-06-26 22:36] LABS: BODY FLUID CRYSTALS NO CRYSTALS SEEN (None Seen)
[2023-06-26 23:03] VITALS: O2SAT 97
[2023-06-26 23:04] LABS: APPEARANCE,SPUN,BODY FLUID CLOUDY (CLEAR); BF APPEARANCE UNSPUN BLOODY (CLEAR)
[2023-06-26 23:45] LABS: TPROTEIN U,24HR 325.4 mg/24HR (0-130)
[2023-06-27 00:48] VITALS: BP_SYST 135; PULSE 103; RESP 19; TEMP 98.7; O2SAT 95
[2023-06-27] MEDS: HYDROcodone/ACETAMIN 10-325 MG TAB PO PRN ×3 (02:22→10:42)
[2023-06-27 08:00] VITALS: BP_SYST 151; PULSE 92; RESP 16; TEMP 98.4; O2SAT 96; O2SAT 97
[2023-06-27] MEDS: FLUCONAZOLE 200 mg/ NS 100 ML IV SCH (10:34)
[2023-06-27] MEDS: ASPIRIN 81 MG TABLET(ECOTRIN) PO SCH (10:42)
[2023-06-27 11:30] VITALS: BP_SYST 120; PULSE 82; RESP 19; TEMP 98.4; O2SAT 94
[2023-06-27 15:08] LABS: INR 1.2 (0.80-1.20); PROTHROMBIN TIME 12.8 SECS (9.5-12.5)
[2023-06-27 17:30] VITALS: BP_SYST 177; PULSE 84; RESP 19; TEMP 98.7; O2SAT 95
[2023-06-27] MEDS: INSULIN REGULAR, HUMAN 100 UNITS/ML, 3 ML VIAL (humuLIN R) SUBCUT PRN (18:13)
[2023-06-27] MEDS: INSULIN GLARGINE 100 UNITS/ML, 10 ML VIAL SUBCUT SCH (18:30)
[2023-06-27 20:00] VITALS: BP_SYST 168; PULSE 107; RESP 18; TEMP 98.9; O2SAT 97
[2023-06-27] MEDS: TAMSULOSIN HCL 0.4 MG CAP PO SCH (20:45)
[2023-06-27] MEDS: QUEtiapine FUMARATE 25 MG TABLET PO SCH (20:47)
[2023-06-27] MEDS: ATORVASTATIN 20 MG TABLET PO SCH (20:47)
[2023-06-27] MEDS ORDERED: DOXAZOSIN MESYLATE 2 MG TABLET PO SCH (21:00)
[2023-06-27] MEDS: DAPTOmycin 800 MG in NS 50 ML IV SCH (22:02)
[2023-06-28] MEDS: ACETAMINOPHEN 325 MG TABLET PO PRN (00:23)
[2023-06-28 00:54] VITALS: BP_SYST 136; BP_SYST 137; PULSE 118; PULSE 86; RESP 18; TEMP 100.1; TEMP 98.4; O2SAT 93; O2SAT 95
[2023-06-28 08:00] VITALS: BP_SYST 150; PULSE 97; RESP 16; TEMP 98.4; O2SAT 97
[2023-06-28] MEDS ORDERED: ESCITALOPRAM OXALATE 10 MG TABLET PO SCH (09:00)
[2023-06-28] MEDS ORDERED: CITALOPRAM HYDROBROMIDE 20 MG TABLET PO SCH (09:00)
[2023-06-28] MEDS: ASPIRIN 81 MG TABLET(ECOTRIN) PO SCH (09:04)
[2023-06-28] MEDS: QUEtiapine FUMARATE 25 MG TABLET PO SCH (09:05)
[2023-06-28] MEDS: FLUCONAZOLE 200 mg/ NS 100 ML IV SCH (09:08)
[2023-06-28 12:20] VITALS: BP_SYST 142; PULSE 91; RESP 17; TEMP 98.6; O2SAT 97
[2023-06-28] MEDS: DAPTOmycin 800 MG in NS 50 ML IV SCH (12:23)
[2023-06-28 15:16] VITALS: BP_SYST 96; PULSE 100; RESP 16; TEMP 100.2; O2SAT 76
[2023-06-28] MEDS: HYDROcodone/ACETAMIN 10-325 MG TAB PO PRN (15:33)
[2023-06-28 16:20] VITALS: BP_SYST 149; PULSE 94; RESP 17; TEMP 98.5; O2SAT 97
[2023-06-29 03:06] LABS: COCCIDIOIDES AB IGG 2.6 IV (<=0.9); COCCIDIOIDES AB IGM 0.1 IV (<=0.9)
== END 2023-06-28 16:46 | DRG 853 ==
LOC: SED 15:27 → STU 20:09 → SMU 06-25 11:40
PROVIDERS: ADMIT Family Medicine; ATTEND Family Medicine
PROC: 0SBC4ZZ Excision of Right Knee Joint, Percutaneous Endoscopic Approach (ICD-10-PCS; principal; 2023-06-26 09:30)
PROC: 02HV33Z Insertion of Infusion Device into Superior Vena Cava, Percutaneous Approach (ICD-10-PCS; 2023-06-27)
PROC: B548ZZA Ultrasonography of Superior Vena Cava, Guidance (ICD-10-PCS; 2023-06-27)
DX: A40.0 Sepsis due to streptococcus, group A (principal); R65.21 Severe sepsis with septic shock; E87.1 Hypo-osmolality and hyponatremia; E87.20 Acidosis, unspecified; Z68.41 Body mass index [BMI] 40.0-44.9, adult; L03.115 Cellulitis of right lower limb; N17.9 Acute kidney failure, unspecified; M00.861 Arthritis due to other bacteria, right knee; F31.9 Bipolar disorder, unspecified; F20.9 Schizophrenia, unspecified; I25.10 Atherosclerotic heart disease of native coronary artery without angina pectoris; K21.9 Gastro-esophageal reflux disease without esophagitis; F41.9 Anxiety disorder, unspecified; J44.9 Chronic obstructive pulmonary disease, unspecified; R74.01 Elevation of levels of liver transaminase levels; E83.51 Hypocalcemia; E11.65 Type 2 diabetes mellitus with hyperglycemia; K76.82 Hepatic encephalopathy; K72.10 Chronic hepatic failure without coma; M17.11 Unilateral primary osteoarthritis, right knee; M25.461 Effusion, right knee; Z20.822 Contact with and (suspected) exposure to COVID-19; I12.9 Hypertensive chronic kidney disease with stage 1 through stage 4 chronic kidney disease, or unspecified chronic kidney disease; E11.22 Type 2 diabetes mellitus with diabetic chronic kidney disease; N18.9 Chronic kidney disease, unspecified; E66.01 Morbid (severe) obesity due to excess calories; E87.70 Fluid overload, unspecified; E11.40 Type 2 diabetes mellitus with diabetic neuropathy, unspecified; E87.5 Hyperkalemia; D63.8 Anemia in other chronic diseases classified elsewhere; N40.0 Benign prostatic hyperplasia without lower urinary tract symptoms; Z88.8 Allergy status to other drugs, medicaments and biological substances; Z79.899 Other long term (current) drug therapy; Z79.4 Long term (current) use of insulin; Z79.82 Long term (current) use of aspirin
CPT/HCPCS: 36415; 71045; 73564; 73590-TC; 73700-TC; 76376; 76705; 76770; 80048; 80053; 80074; 81000; 82043; 82140; 82150; 82330; 82550; 82553; 82570; 82947; 82962; 83037; 83605; 83690; 83735; 83880; 83930; 83935; 84100; 84156; 84157; 84302; 84443; 84484; 84550; 85007; 85025; 85027; 85610-TC; 85651-TC; 85730-TC; 86592; 86635; 86738; 86886; 86900; 86901; 87040; 87070; 87070-TC; 87075-TC; 87081; 87086; 87101; 87116; 87186-TC; 87205-TC; 87305; 87449; 89051-TC; 89060-TC; 93005; 93306; 93970; 96365; 96367; 99291; C1751; G0378; J0330; J0456; J0878; J1170; J1450; J1815; J1940; J2001; J2185; J2270; J2405; J2543; J2704; J2765; J3010; J3370; J3465; J3480; J3490; J7030; J7040; J7050; P9046